=== PATIENT | male | born 1970 | race African-American/Black ===

== ENCOUNTER 2018-03-07 01:43 | Emergency (ER) | payer OTHER ==
[2018-03-07] MEDS ORDERED: KETOROLAC TROMETHAMINE INJ/PF 30 MG/1 ML SDV IV ONE (02:20)
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
[2018-03-07 04:33] VITALS: BP 122/84
== END 2018-03-07 04:02 | disposition home or self-care (01) ==
LOC: ER 01:43
DX: S00.83XA Contusion of other part of head, initial encounter (principal); S09.92XA Unspecified injury of nose, initial encounter; R51 Headache; R07.89 Other chest pain; V43.52XA Car driver injured in collision with other type car in traffic accident, initial encounter; V47.5XXA Car driver injured in collision with fixed or stationary object in traffic accident, initial encounter
CPT/HCPCS: 99285; 96374; 71046; 70160; J1885

== ENCOUNTER 2018-03-13 12:09 | Emergency (ER) | payer OTHER ==
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
[2018-03-13 14:26] VITALS: BP 137/86
== END 2018-03-13 14:28 | disposition home or self-care (01) ==
LOC: ER 12:09
DX: M54.2 Cervicalgia (principal); M25.512 Pain in left shoulder; F17.210 Nicotine dependence, cigarettes, uncomplicated; V87.7XXD Person injured in collision between other specified motor vehicles (traffic), subsequent encounter
CPT/HCPCS: 72125; 99284

== ENCOUNTER 2019-12-02 08:31 | Emergency (ER) | payer MEDICAID, OTHER ==
--- NOTE | 2019-12-02 10:27 | RADIOLOGY REPORT (SQ) ---
EXAM DESCRIPTION: CHEST SINGLE VIEW IMAGES COMPLETED DATE/TIME: 12/02/2019 10:15 am REASON FOR STUDY: cough COMPARISON: 03/07/2018 EXAM PARAMETERS: NUMBER OF VIEWS: One view. TECHNIQUE: Single frontal radiographic view of the chest acquired. RADIATION DOSE: NA LIMITATIONS: None. FINDINGS: LUNGS AND PLEURA: No opacities, masses or pneumothorax. No pleural effusion. MEDIASTINUM AND HILAR STRUCTURES: No masses. Contour normal. HEART AND VASCULAR STRUCTURES: Heart normal in size. Normal vasculature. BONES: No acute findings. HARDWARE: None in the chest. OTHER: No other significant finding. IMPRESSION: NO ACUTE RADIOGRAPHIC FINDING IN THE CHEST. TECHNICAL DOCUMENTATION: JOB ID: [id number] 2010 [employer]- All Rights Reserved Reading location - IP/workstation name: [email or web address]
[2019-12-02] MEDS ORDERED: PANTOPRAZOLE SODIUM 40 MG VIAL IV ONE (12:27)
[2019-12-02] MEDS ORDERED: METOCLOPRAMIDE HCL ORAL SOLN 10 MG/10 ML UDCUP PO ONE (12:28)
[2019-12-02] MEDS ORDERED: MAG HYDROX/AL HYDROX/SIMETH SUSP 30 ML UDCUP PO ONE (12:28)
[2019-12-02] MEDS ORDERED: LIDOCAINE 2% VISCOUS SOLN 15 ML UDCUP PO ONE (12:28)
[2019-12-02] MEDS ORDERED: NORMAL SALINE 1000 ML 1,000 ML IV ONE (12:29)
[2019-12-02 12:55] LABS: ABSOLUTE LYMPHOCYTES (AUTO) 2.2 10^3/uL (0.5-4.7); ABSOLUTE MONOCYTES (AUTO) 0.7 10^3/uL (0.1-1.4); ABSOLUTE NEUT (AUTO) 7.6 10^3/uL (1.7-8.2); BASOPHILS % (AUTO) 0.4 % (0-2); EOSINOPHILS % (AUTO) 0.5 % (0-6); HEMATOCRIT 43.8 % (37.9-51.0); HEMOGLOBIN 14.8 g/dL (13.5-17.0); LYMPHOCYTES % (AUTO) 21.1 % (13-45); MEAN CORPUSCULAR HEMOGLOBIN 31.5 pg (27.0-33.4); MEAN CORPUSCULAR HGB CONC 33.8 g/dL (32.0-36.0); MEAN CORPUSCULAR VOLUME 93 fl (80-97); MONOCYTES % (AUTO) 6.7 % (3-13); PLATELET COUNT 272 10^3/uL (150-450); RED CELL DISTRIBUTION WIDTH 13.3 % (11.5-14.0); SEGMENTED NEUTROPHILS % (AUTO) 71.3 % (42-78); TOTAL CELLS COUNTED % (AUTO) 100 %; WHITE BLOOD COUNT 10.6 10^3/uL (4.0-10.5)
[2019-12-02 13:12] LABS: ALBUMIN 4.2 g/dL (3.5-5.0); ALKALINE PHOSPHATASE 103 U/L (38-126); ANION GAP 6 (5-19); ASPARTATE AMINO TRANSFERASE 29 U/L (17-59); BILIRUBIN,DIRECT 0.1 mg/dL (0.0-0.4); BILIRUBIN,TOTAL 1.1 mg/dL (0.2-1.3); BLOOD UREA NITROGEN 11 mg/dL (7-20); CALCIUM 9.4 mg/dL (8.4-10.2); CARBON DIOXIDE 25 mmol/L (22-30); CHLORIDE 103 mmol/L (98-107); GLUCOSE 99 mg/dL (75-110); POTASSIUM 4.2 mmol/L (3.6-5.0); TOTAL PROTEIN 7.6 g/dL (6.3-8.2)
[2019-12-02 13:14] LABS: ALCOHOL < 10 mg/dL (NONE DETECTED)
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
--- NOTE | 2019-12-02 15:13 | EKG REPORT ---
SEVERITY:- BORDERLINE ECG - SINUS RHYTHM NONSPECIFIC ST-T CHANGES- INFERIOR LEADS : Confirmed by: Austin Doherty MD 02-Dec-2019 15:12:30
[2019-12-02 15:50] LABS: APPEARANCE,URINE CLEAR; BILIRUBIN,URINE NEGATIVE (NEGATIVE); COLOR,URINE YELLOW; GLUCOSE, URINE NEGATIVE (NEGATIVE); KETONES,URINE 80 mg/dL (NEGATIVE); LEUKOCYTE ESTERASE,URINE NEGATIVE (NEGATIVE); NITRITE,URINE NEGATIVE (NEGATIVE); PROTEIN,URINE 30 mg/dL (NEGATIVE); URINE SPECIFIC GRAVITY 1.024
[2019-12-02 16:07] LABS: URINE BARBITURATES SCREEN NEGATIVE; URINE BENZODIAZEPINES SCREEN NEGATIVE; URINE COCAINE SCREEN NEGATIVE; URINE METHADONE SCREEN NEGATIVE; URINE PHENCYCLIDINE SCREEN NEGATIVE
[2019-12-02 16:09] LABS: URINE AMPHETAMINES SCREEN UNCONFIRMED POSITIVE; URINE MARIJUANA (THC) SCREEN UNCONFIRMED POSITIVE
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
--- NOTE | 2019-12-02 17:36 | ER Document Report ---
Entered by TERESA ADAM SCRIBE 12/02/19 1114 Acting as scribe for:REFUGIO KHLAIL MD ED General - General Chief Complaint: Black/Tarry Stools Stated Complaint: DIFFICULTY BREATHING Time Seen by Provider: 12/02/19 10:14 Information source: Patient Notes: This 49-year-old male patient presents to the emergency department today with complaints of vomiting and diarrhea which began last night at 10:00 PM. Patient reports that he has a history of GERD and used to take Nexium but he stopped taking that and he thinks his symptoms today are related to reflux. Patient mentions that his diarrhea was black last night, he denies taking any Pepto- Bismol. Patient states he has had a GI bleed in the past but had an upper and lower endoscopy and no bleeding was found. Patient also vaguely mentions a tingling sensation from his left shoulder down to his left foot which has been present for over 1 week. He denies any weakness or any neurological deficits. Patient states he becomes diaphoretic every once in a while, usually when he is nauseated. Patient denies any NSAID usage. - Related Data Allergies/Adverse Reactions: No Known Allergies Allergy (Verified 03/13/18 12:10) Past Medical History - General Information source: Patient - Social History Smoking Status: Current Every Day Smoker Cigarette use (# per day): Yes Chew tobacco use (# tins/day): No Frequency of alcohol use: Social Drug Abuse: None Lives with: Family Family History: Reviewed & Not Pertinent GI Medical History: Reports: Hx Gastroesophageal Reflux Disease Past Surgical History: Reports: Hx Orthopedic Surgery - neck Review of Systems - Review of Systems Constitutional: See HPI, Diaphoresis EENT: No symptoms reported Cardiovascular: No symptoms reported Respiratory: No symptoms reported Gastrointestinal: See HPI, Abdominal pain, Diarrhea, Nausea, Vomiting, Black stools Genitourinary: No symptoms reported Male Genitourinary: No symptoms reported Musculoskeletal: No symptoms reported Skin: No symptoms reported Hematologic/Lymphatic: No symptoms reported Neurological/Psychological: Tingling - from LUE to LLE, present for one week.. denies: Weakness -: Yes All other systems reviewed and negative Physical Exam - Vital signs Vitals: Temp Pulse Resp BP Pulse Ox 98.8 F 85 20 128/90 H 100 12/02/19 09:27 12/02/19 09:27 12/02/19 09:27 12/02/19 09:27 12/02/19 09:27 - Notes Notes: Physical Exam: General: Alert, appears well. HEENT: Normocephalic. Atraumatic. PERRL. Extraocular movements intact. Oropharynx clear. Neck: Supple. Non-tender. Respiratory: No respiratory distress. Clear and equal breath sounds bilaterally. Cardiovascular: Regular rate and rhythm. Abdominal: Epigastric tenderness to palpation. Non-tender. No distension. Normal Bowel Sounds. Back: No gross abnormalities. Extremities: Moves all four extremities. Upper extremities: Normal inspection. Normal ROM. Lower extremities: Normal inspection. No edema. Normal ROM. Neurological: Normal cognition. AAOx4. Normal speech. Psychological: Normal affect. Normal Mood. Skin: Warm. Dry. Normal color. Course - Re-evaluation Re-evalutation: 12/02/19 17:30 Patient states he is feeling better at this time not having any nausea vomiting or abdominal pain. - Vital Signs Vital signs: Temp Pulse Resp BP Pulse Ox 98.8 F 85 20 128/90 H 100 12/02/19 09:48 12/02/19 09:27 12/02/19 09:27 12/02/19 09:27 12/02/19 09:27 12/02/19 17:30 Vital signs stable - Laboratory Result Diagrams: 12/02/19 10:50 12/02/19 10:50 Laboratory results interpreted by me: 12/02/19 12/02/19 12/02/19 10:50 10:50 15:15 WBC 10.6 H Sodium 133.8 L Urine Protein 30 H Urine Ketones 80 H Urine Urobilinogen 4.0 H Lab results within normal range except for some ketones noted in the urine protein was 30. - Diagnostic Test Radiology reviewed: Image reviewed, Reports reviewed Radiology results interpreted by me: 12/02/19 17:31 Chest x-ray shows no acute process Abdominal plain film x-ray shows no obstruction moderate, stool consistent with constipation. CT abdomen and pelvis did not show any acute process no evidence of any GI bleed. - EKG Interpretation by Me Additional EKG results interpreted by me: 12/02/19 17:33 Twelve-lead EKG shows normal sinus rhythm and rate nonspecific ST-T wave changes in inferior leads otherwise no acute process no ST elevation. Discharge - Discharge Clinical Impression: Nausea & vomiting, Abdominal pain Condition: Stable Disposition: HOME, SELF-CARE Instructions: Abdominal Pain ([facility]), Antinausea Medication ([facility]), Vomiting ([facility]) Prescriptions: Omeprazole 40 mg PO DAILY #30 capsule. Ondansetron [Zofran Odt 4 mg Tablet] 1 - 2 tab PO Q4H PRN #15 tab.rapdis PRN Reason: For Nausea/Vomiting I personally performed the services described in the documentation, reviewed and edited the documentation which was dictated to the scribe in my presence, and it accurately records my words and actions.
[2019-12-02 17:47] VITALS: BP 146/93
== END 2019-12-02 17:48 | disposition home or self-care (01) ==
LOC: ER 08:31
DX: R11.2 Nausea with vomiting, unspecified (principal); R10.84 Generalized abdominal pain; R19.7 Diarrhea, unspecified; R06.00 Dyspnea, unspecified; R61 Generalized hyperhidrosis; F17.210 Nicotine dependence, cigarettes, uncomplicated
CPT/HCPCS: 93005; 99285; 96361; 96374; 36415; 80307 ×2; 83605; 83690; 85025; 80053; 81001; 84484; 74019; 71045; 74177; 93010; J3490 ×3; C9113; J7030